=== PATIENT | female | born 1970 | race Caucasian/White ===

== ENCOUNTER 2024-03-28 10:18 | Emergency (ER) | payer BC, SELFPAY ==
[2024-03-28 10:21] VITALS: BP 142/86; PULSE 103; RESP 16; TEMP 36.3; O2SAT 99; BMI 62.5
--- NOTE | 2024-03-28 10:29 | ED_ITS ---
HPI - General Adult General Time Seen by Provider: 10:29 Date Seen: 03/28/24 Chief complaint: Abdominal Pain Stated complaint: ulcer Time Seen by Provider: 03/28/24 10:24 Source: patient and RN notes reviewed Mode of arrival: ambulatory Limitations: no limitations History of Present Illness HPI narrative: This 53-year-old female is coming into the ER with concern of an ulcer. She notes that her history does document ulcer but notes she has never had an EGD. She has been on omeprazole but states it is not cutting it. Over the last week she has been developing epigastric pain, notes acid taste in her mouth and increased reflux. She has felt chilled at times but no fevers. Sometimes eating will help, other times not. She tried eating some crackers last night and seemed to improve symptoms for a bit. She has had prior abdominal surgery with appendectomy, cholecystectomy and hysterectomy. She has underlying hypothyroidism an asthma which she states are well controlled. She lives just outside of [place], was hoping to switch to this system as it is closer, had been getting her care through [facility] in [place]. She was up all night with this epigastric discomfort. She has tried adding and Pepcid AC and Gaviscon through the night without relief. She notes yesterday she felt faint and dizzy, confused. She has noted no GI bleeding, is not aware that she has ever been tested or treated for H pylori. Related Data Home Medications ?Medication ?Instructions ?Recorded ?Confirmed estradiol 1 mg tablet 1 mg PO DAILY 03/28/24 03/28/24 levothyroxine 88 mcg tablet 88 mcg PO QAM 03/28/24 03/28/24 (Synthroid) montelukast 10 mg tablet 10 mg DAILY 03/28/24 Previous Rx's ?Medication ?Instructions ?Recorded pantoprazole 40 mg tablet,delayed 40 mg PO BID #60 tabs 03/28/24 release (Protonix) sucralfate 1 gram tablet 1 g PO Q6H PRN #60 tabs 03/28/24 Allergies Allergy/AdvReac Type Severity Reaction Status Date / Time amoxicillin (From Augmentin) Allergy Mild nausea and Verified 03/28/24 10:38 vomiting clavulanic acid (From Allergy Mild nausea and Verified 03/28/24 10:38 Augmentin) vomiting doxycycline Allergy Mild Nausea Verified 03/28/24 10:38 metronidazole (From Flagyl) Allergy Mild nausea Verified 03/28/24 10:38 venlafaxine (From Effexor) Allergy Mild nausea and Verified 03/28/24 10:38 vomiting Review of Systems Status of ROS: Reports: 6 or more systems reviewed and unremarkable except as noted in History and below [facility] Medical History (Updated 03/28/24 @ 15:20 by Tarah Sanchez MD) GERD (gastroesophageal reflux disease) ?K21.9 - Gastro-esophageal reflux disease without esophagitis (ICD-10) Asthma ?J45.909 - Unspecified asthma, uncomplicated (ICD-10) Hypothyroidism ?E03.9 - Hypothyroidism, unspecified (ICD-10) Surgical History (Updated 03/28/24 @ 10:47 by Tarah Sanchez MD) History of hysterectomy ?Z90.710 - Acquired absence of both cervix and uterus (ICD-10) History of appendectomy ?Z90.49 - Acquired absence of other specified parts of digestive tract (ICD- 10) History of cholecystectomy ?Z90.49 - Acquired absence of other specified parts of digestive tract (ICD- 10) Social History Smoking Status: Never smoker How often do you have a drink containing alcohol: monthly or less How often do you have six or more drinks on one occasion: Never AUDIT-C Alcohol total score: 1 Non-prescribed substance use: denies use Exam Const: Vital Signs, click to edit/add: Vital Signs - 24 hr 03/28/24 10:21 03/28/24 14:15 Temperature 97.4 F L Pulse Rate [Pulse Oximeter] 103 H 85 Respiratory Rate 16 16 Blood Pressure [Ri ght Upper Arm] 142/86 H 149/86 H Pulse Oximetry 99 98 Oxygen Delivery Me thod Room Air Room Air This 53-year-old female is alert, interactive, no apparent distress. She is very pleasant. She does have dark circles under eyes like she is tired but no distress. Pupils are equal round, sclera clear, symmetrical facial function. He will speak in complete sentences. Neck supple, no adenopathy or masses, no thyromegaly masses or nodules. Lungs are clear, good air entry, wheeze our coccal come no tachypnea. CV is currently regular, no murmur, normal S1-S2, no S3-S4. Abdomen is not distended, normal bowel sounds, no rebound or guarding, no organomegaly, no masses. She does complain of the epigastric area where she is feeling pain but she has no significant tenderness in certainly no masses or rebound or guarding on examination. She does not appear jaundice, no scleral icterus noted. Documenting provider has reviewed patient's vital signs: yes Course Course ED Course: Have reviewed with patient given her symptoms that I do agree that this seems like worsening reflux disease, could be ulcer, could be esophagitis. We need to do some screening labs, make sure that there is no complicating pancreatitis but being status post cholecystectomy with hopefully make this less likely for her. Could be other etiologies like GI pathology such as an early gastroenteritis. It is possible that this is gastritis that is worsening. Will give her 40 mg IV Protonix. If her labs are reasonable and there is no other concerns such is being significantly anemic or other pathology as identified on her labs, will proceed with ordering her an EGD here and a follow-up in clinic. She would like to transfer here. Will order the H pylori stool antigen which she is aware would not be managed through us but could be followed up and treated if positive through primary care provider in our clinic. Reevaluation(s) Time of Reevaluation #1: 11:55 Reevaluation #1: Patient's labs have subsequently come back normal, did order the EGD. Endoscopy did call us back immediately, there is possibility that she can be done today. She last had liquids around 9:00 a.m., has not eaten any solids today. I did speak with Dr. Werner whom is doing endoscopy. It is likely that this will be done today but just awaiting confirmation from anesthesia. Patient is willing to have it done today, can get a coach tour driver if she does have the EGD and anesthesia. Time of Reevaluation #2: 15:16 Reevaluation #2: Patient has recovered from her EGD. She does report some increased epigastric discomfort afterwards. She does have a hiatal hernia but the overall appearance of the EGD was normal, biopsies are pending. We will cancel the stool H pylori as this should be checked with biopsies. We have discussed that there is really no quick fix. Will need to follow up in clinic an appointment has been scheduled. She will get switched to a different PPI. If the biopsies are normal, treatment with other proton pump inhibitors are not helping, consideration for surgical approach with Zachariah fundoplication can be discussed. Vital Signs Vital signs: Initial Vital Signs Temperature 97.4 F L 03/28/24 10:21 Temperature Source Temporal Artery Scan 03/28/24 10:21 Pulse Rate 103 H 03/28/24 10:21 Respiratory Rate 16 03/28/24 10:21 Blood Pressure 142/86 H 03/28/24 10:21 Blood Pressure Mean 104 03/28/24 10:21 Blood Pressure Position Sitting 03/28/24 10:21 Pulse Oximetry 99 03/28/24 10:21 Oxygen Delivery Method Room Air 03/28/24 10:21 Vital Signs Temperature 97.4 F L 03/28/24 10:21 Pulse Rate 103 H 03/28/24 10:21 Respiratory Rate 16 03/28/24 10:21 Blood Pressure 142/86 H 03/28/24 10:21 Pulse Oximetry 99 03/28/24 10:21 Oxygen Delivery Method Room Air 03/28/24 10:21 Temperature 97.4 F L 03/28/24 10:21 Pulse Rate 85 03/28/24 14:15 Respiratory Rate 16 03/28/24 14:15 Blood Pressure 149/86 H 03/28/24 14:15 Pulse Oximetry 98 03/28/24 14:15 Oxygen Delivery Method Room Air 03/28/24 14:15 Medications Administered Medications: Discontinued Medications Generic Name Dose Route Start Last Admin Trade Name Freq PRN Reason Stop Dose Admin Pantoprazole Sodium 40 mg 03/28/24 10:37 03/28/24 10:48 Pantoprazole Sodium 40 Mg Inj IVP 03/28/24 10:38 40 mg ONCE ONE Administration Medical Decision Making [facility] Narrative Medical decision making narrative: Patient did have EGD today, please see separate EGD note. Lab Data Lab results reviewed: Yes I reviewed the patient's lab results Labs: Lab Results 03/28/24 Range/Units 10:48 WBC 7.52 (4.50-11.00) K/uL RBC 4.68 (4.00-5.20) m/uL Hgb 14.8 (12.0-16.0) gm/dL Hct 45.0 (33.0-51.0) % MCV 96 (80-100) fL MCH 32 (26-34) pg MCHC 33 (32-36) gm/dL RDW Coeff of Raudel 11.6 (11.5-15.5) % Plt Count 252 (140-440) K/uL Neut % (Auto) 63.9 (42.0-72.0) % Lymph % (Auto) 23.4 (20-44) % [place] % (Auto) 8.2 (0.0-11.0) % Eos % (Auto) 8.2 H (0.0-7.0) % Baso % (Auto) 0.3 (0.0-3.0) % Neut # (Auto) 4.80 (1.7-7.0) K/uL Lymph # (Auto) 1.76 (0.90-2.90) K/uL [place] # (Auto) 0.60 (0.00-0.90) K/UL Eos # (Auto) 0.60 H (0.00-0.50) K/uL Baso # (Auto) 0.02 (0.00-0.30) K/uL Abs Immat Gran (auto) 0.01 (0.00-0.30) K/uL Imm/Tot Granulo (auto) 0.1 % Sodium 137 (135-149) mmol/L Potassium 4.1 (3.6-5.1) mmol/L Chloride 104 (96-114) mmol/L Carbon Dioxide 26 (20-32) mmol/L Anion Gap 7 (7-15) mEq/L BUN 13 (7-30) mg/dL Creatinine 0.9 (0.5-1.5) mg/dL Estimated Creat Clear 59.80 Estimated GFR 76 ml/min Glucose 101 (60-115) mg/dL Lactate 1.8 (0.5-1.9) mmol/L Calcium 9.3 (8.4-10.6) mg/dL Total Bilirubin 0.8 (0.1-1.5) mg/dL Direct Bilirubin 0.1 (0.0-0.5) mg/dL AST 26 (12-35) U/L ALT 23 (4-35) U/L Alkaline Phosphatase 72 (40-150) U/L C-Reactive Protein 0.8 (0.5-1.0) mg/dL Total Protein 7.2 (6.0-8.3) g/dL Albumin 4.2 (3.3-5.0) g/dL Lipase 121 (23-300) U/L Discharge Plan Discharge Clinical Impression: Hiatal hernia GERD (gastroesophageal reflux disease) Qualifiers: Esophagitis presence: without esophagitis Qualified Code(s): K21.9 - Gastro- esophageal reflux disease without esophagitis Patient Disposition: Home, Self-Care Condition: Stable Instructions: Hiatal Hernia (ED), GERD (Gastroesophageal Reflux Disease) (ED) Additional Instructions: Follow up appointment is scheduled at the [facility] on 03/29 with a 4pm appointment time. If you have any questions or need to reschedule, please call [phone]. [address] [address] Stop omeprazole and start Protonix twice a day. Can use sucralflate to help try to coat the stomach as well. Review handouts. Keep the clinic follow-up as scheduled above. Prescriptions: New pantoprazole [Protonix] 40 mg tablet,delayed release (DR/EC) 40 mg PO BID Qty: 60 0RF sucralfate 1 gram tablet 1 g PO Q6H PRNQty: 60 0RF No Action levothyroxine [Synthroid] 88 mcg tablet 88 mcg PO QAM estradiol 1 mg tablet 1 mg PO DAILY montelukast 10 mg tablet 10 mg DAILY Follow Up/Referrals: Vanita rGey DO [Referring] - Stand Alone Forms: [facility] Info Instructions
[2024-03-28] MEDS: PANTOPRAZOLE SODIUM 40 MG INJ IVP (10:48)
[2024-03-28 10:58] LABS: Lactate* 1.8 mmol/L (0.5-1.9)
[2024-03-28 11:00] LABS: Basophils Absolute Auto 0.02 K/uL (0.00-0.30); Basophils Percent Auto 0.3 % (0.0-3.0); Hemoglobin* 14.8 gm/dL (12.0-16.0); Immature Granulocytes Abs Auto 0.01 K/uL (0.00-0.30); Immature Granulocytes Pct Auto 0.1 %; Lymphocytes Absolute Auto 1.76 K/uL (0.90-2.90); Lymphocytes Percent Auto 23.4 % (20-44); Mean Corpuscular HGB Conc 33 gm/dL (32-36); Mean Corpuscular Hemoglobin 32 pg (26-34); Mean Corpuscular Volume 96 fL (80-100); Monocytes Percent Auto 8.2 % (0.0-11.0); Neutrophils Percent Auto 63.9 % (42.0-72.0); Platelet Count* 252 K/uL (140-440); RDW Coefficient of Variation % 11.6 % (11.5-15.5); Red Blood Count 4.68 m/uL (4.00-5.20); White Blood Count* 7.52 K/uL (4.50-11.00)
[2024-03-28 11:04] LABS: Eosinophils Percent Auto 8.2 % (0.0-7.0); Slide Review Reflex No
[2024-03-28 11:26] LABS: Albumin* 4.2 g/dL (3.3-5.0); Chloride* 104 mmol/L (96-114)
[2024-03-28 11:27] LABS: Potassium* 4.1 mmol/L (3.6-5.1); Sodium* 137 mmol/L (135-149)
[2024-03-28 11:29] LABS: Creatinine* 0.9 mg/dL (0.5-1.5); Estimated Glomerular Filt Rate 76 ml/min
[2024-03-28 11:30] LABS: Alanine Aminotransferase* 23 U/L (4-35); Alkaline Phosphatase* 72 U/L (40-150); Anion Gap 7 mEq/L (7-15); Aspartate Amino Transferase* 26 U/L (12-35); Bilirubin Direct* 0.1 mg/dL (0.0-0.5); Bilirubin Total* 0.8 mg/dL (0.1-1.5); Blood Urea Nitrogen* 13 mg/dL (7-30); Calcium* 9.3 mg/dL (8.4-10.6); Carbon Dioxide* 26 mmol/L (20-32); Glucose* 101 mg/dL (60-115); Lipase* 121 U/L (23-300); Total Protein* 7.2 g/dL (6.0-8.3)
[2024-03-28 11:32] LABS: C Reactive Protein* 0.8 mg/dL (0.5-1.0)
--- NOTE | 2024-03-28 13:52 | W.ANESCHARGE ---
Anesthesia Charges Start Date/Time Anesthesia Start Date: 03/28/24 Anesthesia Start Time: 13:30 Stop Date/Time Anesthesia Stop Date: 03/28/24 Anesthesia Stop Time: 13:50
[2024-03-28 14:15] VITALS: BP 149/86; PULSE 85; RESP 16; O2SAT 98
--- NOTE | 2024-03-28 14:15 | W.ANESCHARGE ---
Anesthesia Charges Start Date/Time Anesthesia Start Date: 03/28/24 Anesthesia Start Time: 13:30 Stop Date/Time Anesthesia Stop Date: 03/28/24 Anesthesia Stop Time: 13:50
== END 2024-03-28 15:35 | disposition home or self-care (01) ==
PROVIDERS: Emergency Provider Family Medicine; PCP Family Medicine
DX: K44.9 Diaphragmatic hernia without obstruction or gangrene (principal); K21.9 Gastro-esophageal reflux disease without esophagitis
CPT/HCPCS: 00731; 36415; 43239; 80053; 82248; 83605; 83690; 85025; 86140; 87338; 88305; 96374; 99284; J2470; J2704; J3490